=== PATIENT | male | born 1960 | race Caucasian/White ===

== ENCOUNTER → 2016-05-24 | Outpatient (CLI) | payer OTHER ==
--- NOTE | 2016-05-24 18:49 | CT ---
CT Coronary Calcium Score History: Family history of cardiac disease. Technique: Prospectively gated noncontrast images through the chest, without contrast. Dose reducti on techniques were utilized. Findings: Calcium score according to the Agatston-Janowitz criteria is 0, which places the patient i n the 10th percentile for age. Noncardiac evaluation: There are no noncalcified pulmonary nodules. A small area of nodular scarrin g, measuring 2 mm, is seen on the minor fissure. This has a benign appearance. The patient has no r isk factors for lung cancer. Impressions 1. The patient is at low risk. A calcium score of 0 places the patient in the 10th percentile rank for age. 2. Recommend standard prevention guidelines. I discussed these findings with the patient on May 24, 2016
== END ==
LOC: FIMAGING 14:19
DX: Z13.6 Encounter for screening for cardiovascular disorders (principal); Z82.49 Family history of ischemic heart disease and other diseases of the circulatory system
CPT/HCPCS: 75571-PO